=== PATIENT | male | born 1960 | race Two or more races ===

== ENCOUNTER 2020-03-06 11:40 | Emergency (ER) | payer OTHER ==
[2020-03-06 13:12] VITALS: BP 157/88; PULSE 65
--- NOTE | 2020-03-06 13:46 | EDM.PDOC ---
ED HPI GENERAL MEDICAL PROBLEM - General Chief Complaint: General Stated Complaint: HIGH BLLOD PRESSURE, SOME CHEST PAIN Time Seen by Provider: 03/06/20 13:10 Source of Information: Reports: Patient History Limitations: Reports: No Limitations - History of Present Illness INITIAL COMMENTS - FREE TEXT/NARRATIVE: 59-year-old male who was working hard yesterday changing an axle in his car woke up this morning with left-sided chest pain. It was fairly localized to the left anterior chest, some pain with breathing but he became worried that it was so persistent so he checked his blood pressure which was elevated. He does take medicine for blood pressure, is overweight and is a smoker. He started to become concerned that he may be having a heart attack so came in to get checked. Since being in the emergency room his pain is resolved and blood pressure is normalized. He still feels very anxious about his health. Onset: Unknown/Unsure (Pain was present this morning when he woke up) Location: Reports: Chest (Left anterior chest no radiation) Improves with: Reports: None Worsens with: Reports: Other (Was somewhat worse with breathing but not movement) Associated Symptoms: Reports: No Other Symptoms Left Upper Chest Pain Score (Numeric/FACES): 5 - Related Data Allergies Allergy/AdvReac Type Severity Reaction Status Date / Time No Known Allergies Allergy Verified 03/06/20 13:05 Home Meds: Home Meds Ibuprofen 800 mg PO Q12H PRN 03/06/20 [History] Losartan Potassium 100 mg PO DAILY 03/06/20 [History] Metoprolol Succinate 100 mg PO DAILY 03/06/20 [History] Past Medical History HEENT History: Reports: Impaired Vision Cardiovascular History: Reports: Hypertension Musculoskeletal History: Reports: Fracture Other Musculoskeletal History: finger, toes Endocrine/Metabolic History: Reports: Obesity/BMI 30+ Oncologic (Cancer) History: Reports: Other (See Below) Other Oncologic History: skin - Past Surgical History HEENT Surgical History: Reports: Other (See Below) Other HEENT Surgeries/Procedures: constructed eaR DRUMS GI Surgical History: Reports: Appendectomy Dermatological Surgical History: Reports: Skin Biopsy Social & Family History - Tobacco Use Tobacco Use Status *Q: Current Every Day Tobacco User Years of Tobacco use: 35 Packs/Tins Daily: 0.5 Used Tobacco, but Quit: No Second Hand Smoke Exposure: No - Caffeine Use Caffeine Use: Reports: Coffee - Alcohol Use Days Per Week of Alcohol Use: 7 Number of Drinks Per Day: 3 Total Drinks Per Week: 21 - Recreational Drug Use Recreational Drug Use: No ED ROS GENERAL - Review of Systems Review Of Systems: See Below Constitutional: Denies: Fever, Chills HEENT: Reports: No Symptoms Respiratory: Reports: Pleuritic Chest Pain (Mild pain with breathing this morning, seems improved). Denies: Shortness of Breath Cardiovascular: Reports: Chest Pain (Left-sided anterior chest), Blood Pressure Problem (Blood pressure was "high" this morning with systolic in the 160s). Denies: Palpitations GI/Abdominal: Denies: Abdominal Pain, Nausea, Vomiting : Reports: No Symptoms Skin: Reports: No Symptoms Neurological: Denies: Headache Psychiatric: Reports: Anxiety ED EXAM, GENERAL - Physical Exam Exam: See Below Exam Limited By: No Limitations General Appearance: Alert, No Apparent Distress, Anxious Head: Atraumatic Neck: Supple, Non-Tender Respiratory/Chest: Lungs Clear, Other (Patient does have diffuse chest discomfort to palpation anteriorly, especially the left side) Cardiovascular: Regular Rate, Rhythm, No Murmur GI/Abdominal: Soft, Non-Tender Extremities: Normal Inspection Neurological: Alert, Oriented Psychiatric: Anxious Skin Exam: Warm, Dry Course - Vital Signs Last Recorded V/S: Last Vital Signs Temp 97.8 F 03/06/20 13:10 Pulse 65 03/06/20 13:10 Resp 17 03/06/20 13:10 BP 157/88 H 03/06/20 13:10 Pulse Ox 97 03/06/20 13:10 - Orders/Labs/Meds Labs: Laboratory Tests 03/06/20 Range/Units 13:53 Troponin I < 0.017 (0.000-0.056) ng/mL - Re-Assessments/Exams Free Text/Narrative Re-Assessment/Exam: 03/06/20 14:10 Blood pressure normalized by the time I got in the room. He has generalized soreness of the anterior chest bilaterally with palpation, likely chest wall pain. A troponin was drawn for reassurance. Departure - Departure Time of Disposition: 14:36 Disposition: Home, Self-Care 01 Clinical Impression: Left-sided chest wall pain - Discharge Information Instructions: Chest Wall Pain, [id number] Referrals: Rome Godfrey Sr, MD [Primary Care Provider] - Forms: ED Department Discharge Care Plan Goals: Increase activity as tolerated, ibuprofen will help with discomfort and continue your regular prescribed medications. Return anytime if worsening or concerns. Sepsis Event Note (ED) - Evaluation Sepsis Screening Result: No Definite Risk - Focused Exam Vital Signs: Vital Signs Temp Pulse Resp BP Pulse Ox 03/06/20 13:10 97.8 F 65 17 157/88 H 97
== END 2020-03-06 14:36 | disposition home or self-care (01) ==
LOC: JP.ED 11:40
DX: R07.89 Other chest pain (principal); I10 Essential (primary) hypertension; E66.9 Obesity, unspecified; Z68.34 Body mass index [BMI] 34.0-34.9, adult; F17.210 Nicotine dependence, cigarettes, uncomplicated; Z79.899 Other long term (current) drug therapy
CPT/HCPCS: 36415; 84484; 99284

== ENCOUNTER 2023-04-16 08:20 | Emergency (ER) | payer SELFPAY ==
[2023-04-16 08:31] LABS: BASOPHILS ABSOLUTE AUTO 0.04 K/uL (0.00-0.10); BASOPHILS PERCENT AUTO 0.9 % (0.1-1.3); EOSINOPHILS ABSOLUTE AUTO 0.18 K/uL (0.00-0.40); EOSINOPHILS PERCENT AUTO 4.2 % (0.0-5.4); HEMATOCRIT 41.1 % (38.4-49.7); HEMOGLOBIN 14.2 g/dL (12.9-16.9); IMMATURE GRAN PERCENT AUTO 0.5 % (0.0-0.7); LYMPHOCYTES PERCENT AUTO 20.8 % (11.4-47.7); MEAN CORPUSCULAR HEMOGLOBIN 32.2 pg (31.6-35.5); MEAN CORPUSCULAR HGB CONC 34.5 g/dL (31.6-35.5); MEAN CORPUSCULAR VOLUME 93.2 fL (81.4-99.0); MONOCYTES ABSOLUTE AUTO 0.36 K/uL (0.20-0.90); MONOCYTES PERCENT AUTO 8.3 % (3.3-12.6); NEUTROPHILS ABSOLUTE AUTO 2.82 K/uL (1.0-7.6); NEUTROPHILS PERCENT AUTO 65.3 % (40.0-78.1); PLATELET COUNT,PLT 147 K/uL (130-375); RED BLOOD CELL COUNT 4.41 M/uL (4.14-5.76); WHITE BLOOD CELL COUNT,WBC 4.3 K/uL (3.2-11.0)
[2023-04-16 08:36] LABS: IMMATURE GRAN ABSOLUTE AUTO 0.02 K/uL (0.00-0.23)
[2023-04-16 08:54] LABS: CALCIUM 8.5 mg/dL (8.5-10.1); CREATININE 0.9 mg/dL (0.8-1.3); EST CRCL DRUG DOSING (CG) 87.28 mL/min; POTASSIUM,K 4.2 mmol/L (3.6-5.2)
[2023-04-16 08:55] LABS: ANION GAP 13.2 mmol/L (5.0-14.0)
[2023-04-16 08:58] VITALS: BP 129/72; PULSE 68
== END 2023-04-16 09:15 | disposition home or self-care (01) ==
LOC: JP.ED 08:20
DX: R07.89 Other chest pain (principal); I10 Essential (primary) hypertension; E66.9 Obesity, unspecified; Z68.33 Body mass index [BMI] 33.0-33.9, adult; Z79.899 Other long term (current) drug therapy
CPT/HCPCS: 36415; 71045; 71045-26; 80048; 84484; 85025; 93005; 93010; 99283; 99285